=== PATIENT | male | born 1995 | race Caucasian/White ===

== ENCOUNTER 2017-05-29 12:28 | Emergency (ER) | payer BC ==
[~2017-05-29] VITALS: Ht 198.1 cm; Wt 86.0 kg
[2017-05-29 12:36] VITALS: TEMP 36.8; Ht 198.1 cm; Wt 86.0 kg
[2017-05-29] MEDS ORDERED: ONDANSETRON INJ 2 MG/ML 2 ML VIAL IV STA (13:16)
[2017-05-29] MEDS ORDERED: GI COCKTAIL PO STA (13:16)
[2017-05-29] MEDS ORDERED: SODIUM CHLORIDE 0.9% 1000ML 1,000 ML IV STA (13:16)
[2017-05-29] MEDS ORDERED: ALUMINUM/MAGNESIUM SUSP 30 ML UDC ONE (13:23)
[2017-05-29] MEDS ORDERED: LIDOCAINE HCL 2% VISC SOLN 20 ML UDC ONE (13:23)
[2017-05-29 13:28] LABS: BASO % 0.4 %; BASO ABS # 0.02 K/uL (0-0.2); EOS % 1.1 %; EOS ABS # 0.06 K/uL (0-0.5); HEMATOCRIT 41.3 % (42-52); HEMOGLOBIN 14.7 g/dL (14.0-18.0); IG# 0.02 K/uL (0.00-0.02); LYMPH % 12.7 %; LYMPH ABS # 0.69 K/uL (1.2-3.4); MEAN CELL VOLUME 83.8 fL (80-100); MEAN CORPUSCULAR HEMOGLOBIN 29.8 pg (25-34); MEAN CORPUSCULAR HGB CONC 35.6 g/dl (32-36); MEAN PLATELET VOLUME 9.1 fL (7.4-10.4); MONO % 7.7 %; MONO ABS # 0.42 K/uL (0.11-0.59); NEUT % 77.7 %; NEUT ABS # 4.22 K/uL (1.4-6.5); PLATELET COUNT 219 K/uL (130-400); RED CELL DISTRIBUTION WIDTH CV 12.8 % (11.5-14.5); RED CELL DISTRIBUTION WIDTH SD 38.5 fL (36.4-46.3); WHITE BLOOD COUNT 5.43 K/uL (4.8-10.8)
[2017-05-29 13:49] LABS: ALBUMIN 4.1 gm/dl (3.4-5.0); ALT/SGPT 26 U/L (12-78); AST/SGOT 17 U/L (15-37); BLOOD UREA NITROGEN 11 mg/dl (7-18); CALCIUM 8.9 mg/dl (8.5-10.1); CARBON DIOXIDE 29 mmol/L (21-32); GLUCOSE 83 mg/dl (70-99); LIPASE 88 U/L (73-393); POTASSIUM 3.8 mmol/L (3.5-5.1); SODIUM 135 mmol/L (136-145)
[2017-05-29 13:52] LABS: ALKALINE PHOSPHATASE 82 U/L (45-117); TOTAL PROTEIN 7.6 gm/dl (6.4-8.2)
--- NOTE | 2017-05-29 14:53 | DIAGNOSTIC IMAGING REPORT ---
ABDOMINAL ULTRASOUND, RIGHT UPPER QUADRANT HISTORY: Epigastric abdominal pain. COMPARISON: None. FINDINGS: The liver is sonographically normal. The gallbladder is normal. There are no gallstones. There is no biliary ductal dilatation. Common bile duct measures 3 mm in caliber. The pancreas is within normal limits although the tail is slightly obscured by overlying bowel gas. There is no right hydronephrosis. IMPRESSION: No significant abnormality identified within the right upper quadrant. Electronically signed by: Bartolome Bhat M.D. 05/29/2017 2:52 PM Dictated Date/Time: 05/29/2017 2:48 PM
[2017-05-29 15:06] VITALS: BP 140/80; PULSE 76; O2SAT 98
[2017-05-29] MEDS ORDERED: FAMO20TA11 PO (15:28)
[2017-05-29] MEDS ORDERED: ONDA4TAB46 PO (15:28)
--- NOTE | 2017-05-29 19:17 | EMERGENCY ROOM VISIT NOTE ---
History Report prepared by Serenaibcharisse: Cholo Griffin Under the Supervision of: Hilda ProctorO. First contact with patient: 12:59 Chief Complaint: ABDOMINAL PAIN Stated Complaint: STOMACH PAIN History of Present Illness The patient is a 21 year old male who presents to the Emergency Room with complaints of persistent abdominal pain for one week. The patient notes the pain worsens when he eats. He states that TUMS normally provides mild relief, though these symptoms are persistent. He notes nausea from the pain. He states that he vomited two days ago, though has no recent episodes of vomiting. He describes gas pain with his abdominal pain. He currently rates his pain a 7/10 in severity. He has not drunk ETOH in a while due to the pain. He denies drinking coffee. His last bowel movement was this morning. The patient denies any underlying medical problems. Pt denies fevers, chest pain, shortness of breath, diarrhea, pain with urination, and melena. Source of History: patient Onset: one week Position: abdomen Symptom Intensity: 7/10 Timing: other (persistent) Associated Symptoms: + nausea, + vomiting, No fevers, No chest pain, No SOB , No melena, No diarrhea, No urinary symptoms (no pain with urination) Note: He notes abdominal pain with gas pain. Review of Systems See HPI for pertinent positives & negatives. A total of 10 systems reviewed and were otherwise negative. Past Medical & Surgical Medical Problems: (1) No Known Active Medical Problems (2) No pertinent past medical history Family History No pertinent family history Social History Alcohol Use: occasionally Marital Status: single Housing Status: lives with family Occupation Status: student Current/Historical Medications Scheduled Famotidine (Pepcid), 20 MG PO DAILY Scheduled PRN Ondansetron Hcl (Zofran), 4 MG PO TID PRN for Nausea Allergies Coded Allergies: Amoxicillin (Unverified Allergy, Unknown, HIVES, 05/29/17) Clavulanic Acid (Unverified Allergy, Unknown, HIVES, 05/29/17) Sulfamethoxazole w/Trimethoprim (Unverified Allergy, Unknown, HIVES, ) Physical Exam Vital Signs Date Time Temp Pulse Resp B/P (MAP) Pulse Ox O2 Delivery O2 Flow Rate FiO2 05/29/17 15:06 76 16 140/80 98 Room Air 05/29/17 12:36 36.8 82 16 138/88 99 Physical Exam GENERAL: Sitting up in bed, alert, well appearing, well nourished, no distress, non-toxic EYE EXAM: normal conjunctiva. OROPHARYNX: no exudate, no erythema, lips, buccal mucosa, and tongue normal and mucous membranes are moist NECK: supple, no nuchal rigidity, no adenopathy, non-tender LUNGS: Clear to auscultation. Normal chest wall mechanics HEART: no murmurs, S1 normal and S2 normal ABDOMEN: abdomen soft, tender to palpation in epigastric region, normo-active bowel sounds, no masses, no rebound or guarding. BACK: Back is symmetrical on inspection and there is no deformity, no midline tenderness, no CVA tenderness. SKIN: no rashes and no bruising UPPER EXTREMITIES: upper extremities are grossly normal. LOWER EXTREMITIES: No pitting edema. NEURO EXAM: Normal sensorium, cranial nerves II-XII grossly intact, normal speech, no gross weakness of arms, no gross weakness of legs. Medical Decision & Procedures ER Provider Diagnostic Interpretation: Radiology results as stated below per my review and the radiologist's interpretation: ABDOMINAL ULTRASOUND, RIGHT UPPER QUADRANT HISTORY: Epigastric abdominal pain. COMPARISON: None. FINDINGS: The liver is sonographically normal. The gallbladder is normal. There are no gallstones. There is no biliary ductal dilatation. Common bile duct measures 3 mm in caliber. The pancreas is within normal limits although the tail is slightly obscured by overlying bowel gas. There is no right hydronephrosis. IMPRESSION: No significant abnormality identified within the right upper quadrant. Electronically signed by: Bartolome Bhat M.D. 05/29/2017 2:52 PM Dictated Date/Time: 05/29/2017 2:48 PM Laboratory Results 05/29/17 13:17 Red Blood Count 4.93, Mean Corpuscular Volume 83.8, Mean Corpuscular Hemoglobin 29.8, Mean Corpuscular Hemoglobin Concent 35.6, Mean Platelet Volume 9.1, Neutrophils (%) (Auto) 77.7, Lymphocytes (%) (Auto) 12.7, Monocytes (%) (Auto) 7.7, Eosinophils (%) (Auto) 1.1, Basophils (%) (Auto) 0.4, Neutrophils # (Auto) 4.22, Lymphocytes # (Auto) 0.69, Monocytes # (Auto) 0.42, Eosinophils # (Auto) 0.06, Basophils # (Auto) 0.02 05/29/17 13:17 Test 05/29/17 13:07 05/29/17 13:17 Urine Color YELLOW Urine Appearance CLOUDY (CLEAR) Urine pH 7.0 (4.5-7.5) Urine Specific [place] 1.022 (1.000-1.030) Urine Protein NEG (NEG) Urine Glucose (UA) NEG (NEG) Urine Ketones 2+ (NEG) Urine Occult Blood NEG (NEG) Urine Nitrite NEG (NEG) Urine Bilirubin NEG (NEG) Urine Urobilinogen NEG (NEG) Urine Leukocyte Esterase NEG (NEG) Urine WBC (Auto) 1-5 /hpf (0-5) Urine RBC (Auto) 0-4 /hpf (0-4) Urine Hyaline Casts (Auto) 0 /lpf (0-5) Urine Epithelial Cells (Auto) 5-10 /lpf (0-5) Urine Bacteria (Auto) NEG (NEG) White Blood Count 5.43 K/uL (4.8-10.8) Red Blood Count 4.93 M/uL (4.7-6.1) Hemoglobin 14.7 g/dL (14.0-18.0) Hematocrit 41.3 % (42-52) Mean Corpuscular Volume 83.8 fL (80-100) Mean Corpuscular Hemoglobin 29.8 pg (25-34) Mean Corpuscular Hemoglobin Concent 35.6 g/dl (32-36) Platelet Count 219 K/uL (130-400) Mean Platelet Volume 9.1 fL (7.4-10.4) Neutrophils (%) (Auto) 77.7 % Lymphocytes (%) (Auto) 12.7 % Monocytes (%) (Auto) 7.7 % Eosinophils (%) (Auto) 1.1 % Basophils (%) (Auto) 0.4 % Neutrophils # (Auto) 4.22 K/uL (1.4-6.5) Lymphocytes # (Auto) 0.69 K/uL (1.2-3.4) Monocytes # (Auto) 0.42 K/uL (0.11-0.59) Eosinophils # (Auto) 0.06 K/uL (0-0.5) Basophils # (Auto) 0.02 K/uL (0-0.2) RDW Standard Deviation 38.5 fL (36.4-46.3) RDW Coefficient of Variation 12.8 % (11.5-14.5) Immature Granulocyte % (Auto) 0.4 % Immature Granulocyte # (Auto) 0.02 K/uL (0.00-0.02) Anion Gap 4.0 mmol/L (3-11) Est Creatinine Clear Calc Drug Dose 180.7 ml/min Estimated GFR () > 150.0 Estimated GFR (Non- 129.5 BUN/Creatinine Ratio 14.2 (10-20) Calcium Level 8.9 mg/dl (8.5-10.1) Total Bilirubin 0.8 mg/dl (0.2-1) Direct Bilirubin 0.2 mg/dl (0-0.2) Aspartate Amino Transf (AST/SGOT) 17 U/L (15-37) Alanine Aminotransferase (ALT/SGPT) 26 U/L (12-78) Alkaline Phosphatase 82 U/L (45-117) Total Protein 7.6 gm/dl (6.4-8.2) Albumin 4.1 gm/dl (3.4-5.0) Lipase 88 U/L (73-393) Laboratory results per my review. Medications Administered Medications (Trade) Dose Ordered Sig/Martina Route Start Time Stop Time Status Last Admin Dose Admin Sodium Chloride 1,000 ml @ 999 mls/hr Q1H1M STAT IV 05/29/17 13:16 05/29/17 14:16 DC 05/29/17 13:27 999 MLS/HR Ondansetron HCl (Zofran Inj) 4 mg NOW STAT IV 05/29/17 13:16 05/29/17 13:21 DC 05/29/17 13:27 4 MG Al Hydroxide/Mg Hydroxide (Maalox Susp) 30 ml STK-MED ONCE .ROUTE 05/29/17 13:23 05/29/17 13:24 DC 05/29/17 13:28 30 ML Lidocaine HCl (Viscous Lidocaine 2% Soln) 20 ml STK-MED ONCE .ROUTE 05/29/17 13:23 05/29/17 13:24 DC 05/29/17 13:28 20 ML ED Course ED COURSE: Vital signs were reviewed and showed hypertensive. The patients medical record was reviewed The above diagnostic studies were performed and reviewed. ED treatments and interventions as stated above. 1312: The patient was evaluated in room A2. A complete history and physical examination was performed. 1316: Ordered Lidocaine HCl 20 ml PO, Maalox 30 ml PO, Zofran 4 mg IV, and Sodium Chloride 1,000 ml @ 999 mls/hr IV 1405: I reassessed the patient at this time. He is feeling completely back to normal. 1509: Upon reevaluation, I discussed my findings with the patient and he understands and agrees with the treatment plan. Based on the patients age, coexisting illnesses, exam and lab findings the decision to treat as an outpatient was made. The patient remained stable while under my care. The patient appeared well at the time of discharge. Medical Decision Differential diagnoses includes but is not limited to gastritis, peptic ulcer disease, GERD, gallbladder disease, pancreatitis, small bowel obstruction, acute coronary syndrome, pericarditis, ischemic bowel, irritable bowel disease, irritable bowel syndrome, appendicitis, diverticulitis, malignancy, hernia, urinary tract infection, torsion, [/ectopic (if female)], perforation, trauma, infectious. Patient is a 21-year-old male who presents to ER for epigastric abdominal pain which has been present for the past one week. She was sent in by urgent care. His abdominal exam is benign. Vitals are stable. CBC all BMP, LFTs, bilirubin lipase is normal. UA was negative. Ultrasound right upper quadrant was unremarkable. Symptoms completely resolved with GI cocktail. Based on his history do believe this is most consistent with gastritis. Discharged with Pepcid and Zofran. Chest importance of following up with PCP. Discussed with Pt concerning signs and symptoms to watch out for. Pt was instructed to follow up with their PCP and discussed with the patient their option to return to the ED at anytime for persistent or worsening symptoms. The appropriate anticipatory guidance and out-patient management, including indications for return to the emergency department, were explained at length to the patient and understood. Medication Reconcilliation Current Medication List: was personally reviewed by me Blood Pressure Screening Patient's blood pressure: Elevated blood pressure Blood pressure disposition: Elevated BP felt to be situational Impression Primary Impression: Epigastric abdominal pain Additional Impression: Gastritis Scribe Attestation The scribe's documentation has been prepared under my direction and personally reviewed by me in its entirety. I confirm that the note above accurately reflects all work, treatment, procedures, and medical decision making performed by me. Departure Information Dispostion Home / Self-Care Prescriptions Ondansetron Hcl (ZOFRAN) 4 Mg Tab 4 MG PO TID Y for Nausea, #20 TAB Prov: Jose J Marks, DO 05/29/17 Famotidine (Pepcid) 20 Mg Tab 20 MG PO DAILY, #30 TAB Prov: Jose J Marks, DO 05/29/17 Forms HOME CARE DOCUMENTATION FORM, IMPORTANT VISIT INFORMATION Patient Instructions Abdominal Pain - [facility], ED Gastritis, [facility] Additional Instructions Please follow up with your primary care doctor or if you are a student, [facility] with in the next 24 hours. Any worsening of your symptoms, please return to the ED immediately. This includes any fevers greater than 100.4, worsening pain, chest pain, shortness breath, persistent nausea, vomiting, unable to eat or drink, or any other concerning signs or symptoms from your standpoint. Please take Pepcid as prescribed. Please try to refrain from drinking alcohol, taking NSAIDs, steroids and drinking caffeine. Please take Zofran as needed for nausea and vomiting. Problem Qualifiers Additional Impression: Gastritis Gastritis type: unspecified gastritis Chronicity: acute Gastritis bleeding : presence of bleeding unspecified Qualified Codes: K29.00 - Acute gastritis without bleeding
== END 2017-05-29 15:35 | disposition home or self-care (01) ==
LOC: C.EDB 12:32 → C.EDA 15:35 → CMPBEDREQ 18:47
DX: R10.13 Epigastric pain (principal); K29.00 Acute gastritis without bleeding

== ENCOUNTER 2017-06-01 16:30 | Emergency (ER) | payer BC ==
[~2017-06-01] VITALS: Ht 198.1 cm; Wt 84.6 kg
[~2017-06-01 16:30] MED LIST: FAMO20TA11 PO; ONDA4TAB46 PO
[2017-06-01 16:35] VITALS: TEMP 36.5; Ht 198.1 cm; Wt 84.6 kg
[2017-06-01] MEDS ORDERED: GI COCKTAIL PO STA (16:46)
[2017-06-01] MEDS ORDERED: KETOROLAC TROMETHAMINE 30 MG/ML VIAL IV STA (16:46)
[2017-06-01] MEDS ORDERED: OPTIRAY 320 IV PRN (17:00)
[2017-06-01] MEDS ORDERED: ONDANSETRON INJ 2 MG/ML 2 ML VIAL IV STA (17:03)
[2017-06-01 17:05] LABS: BASO % 0.6 %; BASO ABS # 0.04 K/uL (0-0.2); EOS % 1.2 %; EOS ABS # 0.09 K/uL (0-0.5); HEMATOCRIT 40.6 % (42-52); HEMOGLOBIN 14.9 g/dL (14.0-18.0); IG# 0.01 K/uL (0.00-0.02); LYMPH % 13.3 %; LYMPH ABS # 0.97 K/uL (1.2-3.4); MEAN CORPUSCULAR HEMOGLOBIN 30.5 pg (25-34); MEAN CORPUSCULAR HGB CONC 36.7 g/dl (32-36); MEAN PLATELET VOLUME 9.2 fL (7.4-10.4); MONO % 10.3 %; MONO ABS # 0.75 K/uL (0.11-0.59); NEUT % 74.5 %; NEUT ABS # 5.41 K/uL (1.4-6.5); PLATELET COUNT 288 K/uL (130-400); RED CELL DISTRIBUTION WIDTH CV 12.9 % (11.5-14.5); RED CELL DISTRIBUTION WIDTH SD 38.5 fL (36.4-46.3); WHITE BLOOD COUNT 7.27 K/uL (4.8-10.8)
--- NOTE | 2017-06-01 17:10 | EMERGENCY ROOM VISIT NOTE ---
History Report prepared by Elvin: Cholo Griffin Under the Supervision of: Dr. Jose J Marks D.O. First contact with patient: 16:39 Chief Complaint: ABDOMINAL PAIN Stated Complaint: NAUSEA Nursing Triage Summary: Pt reports he was here several days ago with mid abdominal pain. Pain has worsened today. N/V. Pt took Zofran around 0900 and Pepcid 3 times. History of Present Illness The patient is a 21 year old male who presents to the Emergency Room with complaints of intermittent abdominal pain for one week. He was recently seen in the ED May 29, 2017 for similar symptoms. He states that he was feeling better for the past couple of days, though the pain returned and is worse than before. He notes eating worsens his abdominal pain. He currently rates his pain a 7/10 in severity. He notes nausea, though no vomiting. He is experiencing hot flashes. His last normal bowel movement was one hour ago. He feels constipated. He notes a mild cough. He denies any underlying medical problems. He denies any history of abdominal surgeries. Pt denies fevers, chest pain, shortness of breath, runny nose, diarrhea, pain with urination, and melena. Patient has been taking Pepcid since he was seen here in the ER which has been improving his symptoms up until today. Source of History: patient Onset: one week [employer] Position: abdomen Symptom Intensity: 7/10 Timing: intermittent Modifying Factors (Worsening): eating Modifying Factors (Relieving): other (Pepcid) Associated Symptoms: + cough (mild), + nausea, No fevers, No chest pain, No SOB, No vomiting, No melena, No diarrhea, No urinary symptoms (no pain with urination) Note: He notes hot flashes. He denies any runny nose. Review of Systems See HPI for pertinent positives & negatives. A total of 10 systems reviewed and were otherwise negative. Past Medical & Surgical Medical Problems: (1) No Known Active Medical Problems (2) No pertinent past medical history Family History No pertinent family history Social History Smoking Status: Never Smoker Alcohol Use: occasionally Marital Status: single Housing Status: lives with family Occupation Status: student Current/Historical Medications Scheduled Famotidine (Pepcid), 20 MG PO DAILY Sucralfate (Carafate), 1 GM PO QID Scheduled PRN Ondansetron Hcl (Zofran), 4 MG PO TID PRN for Nausea Allergies Coded Allergies: Amoxicillin (Unverified Allergy, Unknown, HIVES, 05/29/17) Clavulanic Acid (Unverified Allergy, Unknown, HIVES, 05/29/17) Sulfamethoxazole w/Trimethoprim (Unverified Allergy, Unknown, HIVES, ) Physical Exam Vital Signs Date Time Temp Pulse Resp B/P (MAP) Pulse Ox O2 Delivery O2 Flow Rate FiO2 06/01/17 20:13 75 16 115/76 98 06/01/17 18:39 78 20 134/80 95 Room Air 06/01/17 16:35 36.5 93 16 127/74 98 Room Air Physical Exam GENERAL: Sitting up in bed, alert, well appearing, well nourished, no distress, non-toxic EYE EXAM: normal conjunctiva. OROPHARYNX: no exudate, no erythema, lips, buccal mucosa, and tongue normal and mucous membranes are moist NECK: supple, no nuchal rigidity, no adenopathy, non-tender LUNGS: Clear to auscultation. Normal chest wall mechanics HEART: no murmurs, S1 normal and S2 normal ABDOMEN: abdomen soft, tenderness in periumbilical region, normo-active bowel sounds, no masses, no rebound or guarding. BACK: Back is symmetrical on inspection and there is no deformity, no midline tenderness, no CVA tenderness. SKIN: no rashes and no bruising UPPER EXTREMITIES: upper extremities are grossly normal. LOWER EXTREMITIES: No pitting edema. NEURO EXAM: Normal sensorium, cranial nerves II-XII grossly intact, normal speech, no gross weakness of arms, no gross weakness of legs. Medical Decision & Procedures ER Provider Diagnostic Interpretation: Radiology results as stated below per my review and the radiologist's interpretation: CT SCAN OF THE ABDOMEN AND PELVIS WITH IV CONTRAST CLINICAL HISTORY: Epigastric abdominal pain. COMPARISON STUDY: Abdominal ultrasound dated 05/29/2017. TECHNIQUE: Following the IV administration of 94 cc of Optiray 320, CT scan of the abdomen and pelvis is performed from the lung bases to the proximal femora. Images are reviewed in the axial, sagittal, and coronal planes. IV contrast was administered without complication. A dose lowering technique was utilized adhering to the principles of ALARA. CT DOSE: 286.28 mGy.cm FINDINGS: Lung bases: The heart is normal in size and without pericardial effusion. The lung bases are clear. Liver: The contrast-enhanced liver is normal in size, contour, and attenuation. There is no intrahepatic biliary ductal dilatation. The hepatic veins and portal veins are patent. Gallbladder: Unremarkable. Spleen: The spleen is mildly enlarged measuring 13.5 cm in length. Pancreas: Unremarkable. Adrenal glands: Unremarkable. Kidneys: The contrast enhanced kidneys are normal in size and without hydronephrosis. The kidneys enhance symmetrically. Abdominal vasculature: The abdominal aorta is normal in course and caliber. Bowel: The small bowel and colon are normal in course and caliber. The appendix is well-visualized and normal. Peritoneum: There is no intraperitoneal free air or abdominal ascites. Lymphadenopathy: There are numerous mildly enlarged mesenteric lymph nodes which measure up to 11 mm in short axis. Pelvic viscera: The bladder, prostate, and seminal vesicles are normal as visualized. Skeletal structures: No lytic or blastic lesions are seen. IMPRESSION: 1. There are numerous minimally enlarged mesenteric lymph nodes. This is a nonspecific finding and could be seen in the setting of mesenteric adenitis or possibly a nonspecific enteritis. Clinical correlation will be required. 2. Mild splenomegaly. Electronically signed by: Paramjit Sanchez M.D. 06/01/2017 7:29 PM Dictated Date/Time: 06/01/2017 7:25 PM Laboratory Results 06/01/17 16:55 Red Blood Count 4.89, Mean Corpuscular Volume 83.0, Mean Corpuscular Hemoglobin 30.5, Mean Corpuscular Hemoglobin Concent 36.7, Mean Platelet Volume 9.2, Neutrophils (%) (Auto) 74.5, Lymphocytes (%) (Auto) 13.3, Monocytes (%) (Auto) 10.3, Eosinophils (%) (Auto) 1.2, Basophils (%) (Auto) 0.6, Neutrophils # (Auto ) 5.41, Lymphocytes # (Auto) 0.97, Monocytes # (Auto) 0.75, Eosinophils # (Auto ) 0.09, Basophils # (Auto) 0.04 06/01/17 16:55 Test 06/01/17 16:55 White Blood Count 7.27 K/uL (4.8-10.8) Red Blood Count 4.89 M/uL (4.7-6.1) Hemoglobin 14.9 g/dL (14.0-18.0) Hematocrit 40.6 % (42-52) Mean Corpuscular Volume 83.0 fL (80-100) Mean Corpuscular Hemoglobin 30.5 pg (25-34) Mean Corpuscular Hemoglobin Concent 36.7 g/dl (32-36) Platelet Count 288 K/uL (130-400) Mean Platelet Volume 9.2 fL (7.4-10.4) Neutrophils (%) (Auto) 74.5 % Lymphocytes (%) (Auto) 13.3 % Monocytes (%) (Auto) 10.3 % Eosinophils (%) (Auto) 1.2 % Basophils (%) (Auto) 0.6 % Neutrophils # (Auto) 5.41 K/uL (1.4-6.5) Lymphocytes # (Auto) 0.97 K/uL (1.2-3.4) Monocytes # (Auto) 0.75 K/uL (0.11-0.59) Eosinophils # (Auto) 0.09 K/uL (0-0.5) Basophils # (Auto) 0.04 K/uL (0-0.2) RDW Standard Deviation 38.5 fL (36.4-46.3) RDW Coefficient of Variation 12.9 % (11.5-14.5) Immature Granulocyte % (Auto) 0.1 % Immature Granulocyte # (Auto) 0.01 K/uL (0.00-0.02) Anion Gap 6.0 mmol/L (3-11) Est Creatinine Clear Calc Drug Dose 134.1 ml/min Estimated GFR () 117.3 Estimated GFR (Non- 101.2 BUN/Creatinine Ratio 10.7 (10-20) Calcium Level 9.6 mg/dl (8.5-10.1) Total Bilirubin 0.5 mg/dl (0.2-1) Direct Bilirubin 0.1 mg/dl (0-0.2) Aspartate Amino Transf (AST/SGOT) 21 U/L (15-37) Alanine Aminotransferase (ALT/SGPT) 32 U/L (12-78) Alkaline Phosphatase 82 U/L (45-117) Total Protein 7.8 gm/dl (6.4-8.2) Albumin 4.2 gm/dl (3.4-5.0) Lipase 124 U/L (73-393) Laboratory results per my review. Medications Administered Medications (Trade) Dose Ordered Sig/Martina Route Start Time Stop Time Status Last Admin Dose Admin Ketorolac Tromethamine (Toradol Inj) 30 mg NOW STAT IV 06/01/17 16:46 06/01/17 16:48 DC 06/01/17 17:17 30 MG Ondansetron HCl (Zofran Inj) 4 mg NOW STAT IV 06/01/17 17:03 06/01/17 17:04 DC 06/01/17 17:18 4 MG Lidocaine HCl (Viscous Lidocaine 2% Soln) 20 ml STK-MED ONCE .ROUTE 06/01/17 17:14 06/01/17 17:15 DC 06/01/17 17:18 20 ML Al Hydroxide/Mg Hydroxide (Maalox Susp) 30 ml STK-MED ONCE .ROUTE 06/01/17 17:14 06/01/17 17:15 DC 06/01/17 17:18 30 ML Ondansetron HCl (Zofran Inj) 4 mg NOW STAT IV 06/01/17 17:16 06/01/17 17:17 DC 06/01/17 17:46 4 MG Sucralfate (Carafate Tab) 1 gm STK-MED ONCE .ROUTE 06/01/17 20:08 06/01/17 20:09 DC 06/01/17 20:08 1 GM ED Course ED COURSE: Vital signs were reviewed and showed normal. The patients medical record was reviewed The above diagnostic studies were performed and reviewed. ED treatments and interventions as stated above. 1640: The patient was evaluated in room C6. A complete history and physical examination was performed. 1646: Ordered Toradol 30 mg IV, Maalox 30 ml PO, and Lidocaine HCl 20 ml PO 1703: Ordered Zofran 4 mg IV 1715: The patient is now vomiting. 1716: Ordered Zofran 4 mg IV 1950: Upon reevaluation, I discussed my findings with the patient and he understands and agrees with the treatment plan. Based on the patients age, coexisting illnesses, exam and lab findings the decision to treat as an outpatient was made. The patient remained stable while under my care. The patient appeared well at the time of discharge. Medical Decision Differential diagnoses includes but is not limited to gastritis, peptic ulcer disease, GERD, gallbladder disease, pancreatitis, small bowel obstruction, acute coronary syndrome, pericarditis, ischemic bowel, irritable bowel disease, irritable bowel syndrome, appendicitis, diverticulitis, malignancy, hernia, urinary tract infection, torsion, perforation, trauma, infectious. Patient is a 21-year-old male who presents to ER for right upper quadrant/ epigastric abdominal pain which is been present fairly persistently for the past 10 days. He was seen here 2-3 days ago. Ultrasound blood work was unremarkable. He was placed on Pepcid and had significant improvement of symptoms. Symptoms worsened today. Abdominal exam shows no signs peritonitis. Vitals are stable. He was given Toradol, fluids and GI cocktail. He had improvement of symptoms. He did vomit but had several doses of Zofran. CT abdomen and pelvis shows possible mesenteric adenitis. Gallbladder was unremarkable. CBC all BMP, LFTs, bilirubin lipase is normal. UA was not obtained. UA from 2 days ago was normal. I do favor symptoms are likely either secondary to gastritis versus mesenteric adenitis. Medication Reconcilliation Current Medication List: was personally reviewed by me Blood Pressure Screening Patient's blood pressure: Normal blood pressure Impression Primary Impression: Epigastric abdominal pain Additional Impressions: Mesenteric adenitis Gastritis Scribe Attestation The scribe's documentation has been prepared under my direction and personally reviewed by me in its entirety. I confirm that the note above accurately reflects all work, treatment, procedures, and medical decision making performed by me. Departure Information Dispostion Home / Self-Care Prescriptions Sucralfate (CARAFATE) 1 Gm Tab 1 GM PO QID for 7 Days, #28 TAB Prov: Jose J Marks, DO 06/01/17 Referrals No Doctor, Assigned (PCP) Forms HOME CARE DOCUMENTATION FORM, IMPORTANT VISIT INFORMATION Patient Instructions Abdominal Pain - [facility] Additional Instructions Please follow up with your primary care doctor with in the next 24 hours. Any worsening of your symptoms, please return to the ED immediately. This includes any fevers greater than 100.4, worsening pain, chest pain, shortness breath, persistent nausea, vomiting, unable to eat or drink, or any other concerning signs or symptoms from your standpoint. Please take your Pepcid as previously prescribed. Please take Carafate as prescribed when the pain is worse. Please follow up with your PCP as stated above for the enlarged lymph nodes in your abdomen Problem Qualifiers Additional Impressions: Gastritis Gastritis type: unspecified gastritis Chronicity: unspecified Gastritis bleeding: presence of bleeding unspecified Qualified Codes: K29.70 - Gastritis, unspecified, without bleeding
[2017-06-01] MEDS ORDERED: ALUMINUM/MAGNESIUM SUSP 30 ML UDC ONE (17:14)
[2017-06-01] MEDS ORDERED: LIDOCAINE HCL 2% VISC SOLN 20 ML UDC ONE (17:14)
[2017-06-01] MEDS: ONDANSETRON INJ 2 MG/ML 2 ML VIAL IV STA ×2 (17:16→17:46)
[2017-06-01 17:22] LABS: ALBUMIN 4.2 gm/dl (3.4-5.0); CALCIUM 9.6 mg/dl (8.5-10.1); CREATININE 1.06 mg/dl (0.60-1.40); POTASSIUM 3.9 mmol/L (3.5-5.1)
[2017-06-01 17:36] LABS: TOTAL PROTEIN 7.8 gm/dl (6.4-8.2)
--- NOTE | 2017-06-01 19:31 | DIAGNOSTIC IMAGING REPORT ---
CT SCAN OF THE ABDOMEN AND PELVIS WITH IV CONTRAST CLINICAL HISTORY: Epigastric abdominal pain. COMPARISON STUDY: Abdominal ultrasound dated 05/29/2017. TECHNIQUE: Following the IV administration of 94 cc of Optiray 320, CT scan of the abdomen and pelvis is performed from the lung bases to the proximal femora. Images are reviewed in the axial, sagittal, and coronal planes. IV contrast was administered without complication. A dose lowering technique was utilized adhering to the principles of ALARA. CT DOSE: 286.28 mGy.cm FINDINGS: Lung bases: The heart is normal in size and without pericardial effusion. The lung bases are clear. Liver: The contrast-enhanced liver is normal in size, contour, and attenuation. There is no intrahepatic biliary ductal dilatation. The hepatic veins and portal veins are patent. Gallbladder: Unremarkable. Spleen: The spleen is mildly enlarged measuring 13.5 cm in length. Pancreas: Unremarkable. Adrenal glands: Unremarkable. Kidneys: The contrast enhanced kidneys are normal in size and without hydronephrosis. The kidneys enhance symmetrically. Abdominal vasculature: The abdominal aorta is normal in course and caliber. Bowel: The small bowel and colon are normal in course and caliber. The appendix is well-visualized and normal. Peritoneum: There is no intraperitoneal free air or abdominal ascites. Lymphadenopathy: There are numerous mildly enlarged mesenteric lymph nodes which measure up to 11 mm in short axis. Pelvic viscera: The bladder, prostate, and seminal vesicles are normal as visualized. Skeletal structures: No lytic or blastic lesions are seen. IMPRESSION: 1. There are numerous minimally enlarged mesenteric lymph nodes. This is a nonspecific finding and could be seen in the setting of mesenteric adenitis or possibly a nonspecific enteritis. Clinical correlation will be required. 2. Mild splenomegaly. Electronically signed by: Paramjit Sanchez M.D. 06/01/2017 7:29 PM Dictated Date/Time: 06/01/2017 7:25 PM
[2017-06-01] MEDS ORDERED: SUCR1TAB29 PO (20:02)
[2017-06-01] MEDS ORDERED: SUCRALFATE 1 GM TAB ONE (20:08)
[2017-06-01 20:13] VITALS: BP 115/76; PULSE 75; O2SAT 98
== END 2017-06-01 20:14 | disposition home or self-care (01) ==
LOC: C.EDB 16:31 → C.EDC 20:14
DX: I88.0 Nonspecific mesenteric lymphadenitis (principal); K29.70 Gastritis, unspecified, without bleeding; R10.13 Epigastric pain; R16.1 Splenomegaly, not elsewhere classified